=== PATIENT | female | born 1990 | race Caucasian/White ===

== ENCOUNTER 2019-06-21 13:46 | Emergency (ER) | payer OTHER ==
[2019-06-21 14:00] VITALS: BP 137/63
--- NOTE | 2019-06-21 14:12 | UC ---
Throat Pain/Nasal Matthew HPI - HPI Summary HPI Summary: 29-year-old female with a sore throat over the past 2 days. - History of Current Complaint Chief Complaint: UCRespiratory Stated Complaint: ST Time Seen by Provider: 06/21/19 13:51 Hx Obtained From: Patient Hx Last Menstrual Period: unknown ?: No Onset/Duration: Gradual Onset Severity: Mild Pain Intensity: 6 Cough: None Associated Signs & Symptoms: Positive: Negative - Allergies/Home Medications Allergies/Adverse Reactions: Allergies Allergy/AdvReac Type Severity Reaction Status Date / Time No Known Allergies Allergy Verified 06/21/19 13:53 Home Medications: Home Medications ALPRAZolam TAB* [Xanax TAB*] 0.5 mg PO TID PRN 04/07/15 [History Confirmed 06/20] Acetaminophen [APAP] 325 mg PO ONCE PRN 06/21/19 [History Confirmed 06/21/19] FLUoxetine CAP* [PROzac CAP*] 50 mg PO DAILY 06/21/19 [History Confirmed ] QUEtiapine TAB* [Seroquel 25 MG TAB*] 25 mg PO DAILY 06/21/19 [History Confirmed 06/21/19] lamoTRIgine TAB(*) [LaMICtal TAB(*)] 100 mg PO BEDTIME 06/21/19 [History Confirmed 06/21/19] PMH/Surg Hx/FS Hx/Imm Hx Previously Healthy: Yes - Surgical History Surgical History: None - Family History Known Family History: Positive: Unknown - Social History Lives: With Family Alcohol Use: Occasionally Substance Use Type: None Smoking Status (MU): Never Smoked Tobacco Review of Systems All Other Systems Reviewed And Are Negative: Yes ENT: Positive: Sore Throat Is Patient Immunocompromised?: No Physical Exam Triage Information Reviewed: Yes Appearance: Well-Appearing, No Pain Distress, Well-Nourished Vital Signs: Initial Vital Signs Temp 98.4 F 06/21/19 13:56 Pulse 92 06/21/19 13:56 Resp 14 06/21/19 13:56 BP 137/63 06/21/19 13:56 Pulse Ox 100 06/21/19 13:56 Vital Signs Reviewed: Yes Eyes: Positive: Conjunctiva Clear ENT: Positive: Pharyngeal erythema - Minimal pharyngeal erythema, TMs normal, Uvula midline. Negative: Tonsillar swelling, Tonsillar exudate, Trismus, Muffled voice, Hoarse voice Neck: Positive: Supple, Nontender, No Lymphadenopathy Respiratory: Positive: Lungs clear, Normal breath sounds, No respiratory distress, No accessory muscle use Cardiovascular: Positive: RRR, No Murmur, Pulses Normal, Brisk Capillary Refill Musculoskeletal Exam: Normal Neurological Exam: Normal Psychological Exam: Normal Skin Exam: Normal Throat Pain/Nasal Course/Dx - Course Course Of Treatment: Rapid strep test: Negative She is comfortable here. - Differential Dx/Diagnosis Provider Diagnosis: Pharyngitis Discharge ED - Sign-Out/Discharge Documenting (check all that apply): Patient Departure All imaging exams completed and their final reports reviewed: No Studies - Discharge Plan Condition: Good Disposition: HOME Patient Education Materials: Pharyngitis (ED) Referrals: Jennifer Ewing MD [Primary Care Provider] - Additional Instructions: Warm saltwater gargles, throat lozenges, Tylenol every 4 hours or ibuprofen every 8 hours for pain or fever. Follow-up with your primary care provider if no improvement in 3 or 4 days. - Billing Disposition and Condition Condition: GOOD Disposition: Home
== END 2019-06-21 14:19 | disposition home or self-care (01) ==
LOC: UCCORT 13:46
DX: J02.9 Acute pharyngitis, unspecified (principal)
CPT/HCPCS: 87651; 99211; G0463